=== PATIENT | male | born 1965 | race Caucasian/White ===

== ENCOUNTER 2020-01-25 12:03 | Emergency (ER) | payer OTHER ==
[~2020-01-25] VITALS: Ht 165.1 cm; Wt 77.2 kg
[2020-01-25 12:25] VITALS: BP 143/85
[2020-01-25] MEDS ORDERED: PRED20TA PO (12:30)
--- NOTE | 2020-01-25 12:32 | PHYS DOC ---
Adult General Chief Complaint Chief Complaint: BACK PAIN OR INJURY [facility] HPI Patient is a 54-year-old male who presents with neck pain. Onset was 1 week ago without known inciting event or trauma. Patient is taken muscle relaxer and 800 mg ibuprofen prescribed by PCP with mild relief, certain body movements specifically turning head to right side makes worse. Pain described as sharp shooting electric type pain radiating from his neck down towards his right upper extremity. Timing of symptoms has been somewhat constant but waxes and wanes in severity. Patient reports having this evaluated by his primary care physician this past week and had negative radiographs of cervical spine performed. Patient reports ongoing pain and problems performing activities of daily living prompting him to seek emergent care at our ER today. Of note, patient denies any URI-like symptoms, no fever, no chills, no neurological changes, no changes in motor or sensory function Review of Systems Review of Systems Fourteen body systems of review of systems have been reviewed. See HPI for pertinent positives and negative responses, other hernández all other systems are negative, non-pertinent or non-contributory Allergies Allergies Allergies Coded Allergies Type Severity Reaction Last Updated Verified No Known Drug Allergies 01/25/20 No Physical Exam Physical Exam Constitutional: Well developed, well nourished, no acute distress, non-toxic appearance. HENT: Normocephalic, atraumatic, bilateral external ears normal, oropharynx moist, no oral exudates, nose normal. Eyes: PERRLA, EOMI, conjunctiva normal, no discharge. Neck: Normal range of motion, no tenderness, supple, no stridor. Cardiovascular: Heart rate regular, sinus rhythm, no murmurs rubs or gallops Lungs & Thorax: Bilateral breath sounds clear to auscultation Abdomen: Bowel sounds normal, soft, no tenderness, no masses, no pulsatile masses. Nonsurgical abdomen, no peritoneal signs Skin: Warm, dry, no erythema, no rash. Back: No tenderness, no CVA tenderness. Extremities: No tenderness, no cyanosis, no clubbing, ROM intact, no edema. Pulses equal in bilateral upper extremities Neurologic: Alert and oriented X 3, cranial nerves II through XII intact, normal motor & sensory function, no focal deficits noted. Positive Spurling test right side re-creating pain that brought patient to my ER today Psychologic: Affect normal, judgement normal, mood normal. EKG EKG [] Radiology/Procedures Radiology/Procedures [] Course & Med Decision Making Course & Med Decision Making Ambulatory patient seen on arrival ABCs unremarkable Comprehensive history and physical exam obtained, findings indicative of cervical radiculopathy with recent negative radiographs of neck I discussed all other unlikely but more serious causes of patient's presentation but joint decision not to pursue any further diagnostic work-up in ER setting Patient on appropriate therapy from PCP so far, I discussed the possibility of adding short round of glucocorticoids for radicular pain with close PCP follow- up, patient agreeable Discussed continue supportive care, use of NSAIDs as prescribed routinely, as needed muscle relaxer, neck stretches, and newly prescribed glucocorticoids. PCP was called, ER course reviewed so far and discussed my potential plan of action, he was agreeable Discussed need for's close PCP follow-up, advised patient call first thing Monday morning. Discussed possibility of physical therapy or future need for more advanced imaging Strict return precautions discussed with good understanding, all questions and concerns addressed prior to ER departure Alessandra Disclaimer Shirleyon Disclaimer This electronic medical record was generated, in whole or in part, using a voice recognition dictation system. Departure Departure: Impression: Primary Impression: Cervical radiculopathy Disposition: HOME/RESIDENCE PRIOR TO ADM Condition: STABLE Referrals: DAX SOUZA DO (PCP) Patient Instructions: Cervical Radiculopathy Scripts Prednisone (PREDNISONE) 20 Mg Tablet 40 MG PO DAILY for Radiculopathy for 5 Days, #10 TAB Prov: BOBO GARCIA DO 01/25/20 Justification of Admission: Justification of Admission: Justification of Admission Dx: N/A BOBO GARCIA DO Jan 25, 2020 12:32
== END 2020-01-25 12:43 | disposition home or self-care (01) ==
LOC: ER 12:03
DX: M54.12 Radiculopathy, cervical region (principal)
CPT/HCPCS: 99283